=== PATIENT | male | born 1980 | race African-American/Black ===

== ENCOUNTER 2022-09-04 21:59 | Emergency (ER) | payer SELFPAY ==
[~2022-09-04] VITALS: Ht 182.9 cm; Wt 93.9 kg
[~2022-09-04 21:59] MED LIST: ETOMIDATE 2MG/ML 10ML VIAL IV ONE; SUCCINYLCHOLINE CHLORIDE 200MG/10ML IV ONE
[2022-09-04] MEDS ORDERED: ONDANSETRON HCL 4MG/2ML INJ IV STA (22:48)
[2022-09-04 22:57] LABS: CHLORIDE 101 mEq/L (98-107)
[2022-09-04 23:00] LABS: PROTHROMBIN TIME 10.8 sec (9.6-11.0)
[2022-09-04] MEDS ORDERED: PROPOFOL 10MG/ML 100ML 100 ML IV ONE (23:00)
[2022-09-04] MEDS ORDERED: MIDAZOLAM HCL 100 MG in DEXT 5% WATER 80 ML IV ONE (23:00)
[2022-09-04] MEDS ORDERED: ETOMIDATE 2MG/ML 10ML VIAL IV ONE (23:00)
[2022-09-04] MEDS ORDERED: MIDAZOLAM HCL 100 MG in SODIUM CHLORIDE 0.9% 100 ML IV PRN (23:00)
[2022-09-04] MEDS ORDERED: SODIUM CHLORIDE 0.9% 1,000 ML IV ONE (23:00)
[2022-09-04] MEDS ORDERED: VECURONIUM BROMIDE 10 MG/VIAL IV ONE (23:00)
[2022-09-04 23:03] LABS: BASOPHILS % 0.3 % (0.0-2.0); EOSINOPHILS % 0.3 % (0.0-5.0); HEMATOCRIT. 43.2 % (42.0-52.0); LYMPHOCYTES % 23.1 % (20.0-50.0); MEAN CORPUSCULAR HEMOGLOBIN 29.4 pg (28.0-32.0); MEAN CORPUSCULAR VOLUME 90.5 fL (80.0-94.0); MEAN PLATELET VOLUME 9.8 fl (7.4-10.4); MONOCYTES % 12.3 % (2.0-8.0); PLATELET 140 x1000/uL (130-400); RED BLOOD CELL COUNT 4.77 mill/uL (4.7-6.1); RED CELL DISTRIBUTION WIDTH 14.4 % (11.6-14.6)
[2022-09-04 23:14] LABS: CREATINE KINASE 618 IU/L (39-308); ETHANOL BLOOD 51 mg/dL
[2022-09-05] MEDS ORDERED: IOHEXOL-300 100 ML BOTTLE ONE (00:56)
[2022-09-05] MEDS ORDERED: ONDANSETRON HCL 4MG/2ML INJ IV NR (01:00)
[2022-09-05] MEDS ORDERED: TENECTEPLASE IV NR ×2 (01:30→05:00)
[2022-09-05] MEDS ORDERED: [UNRECOGNIZED DRUG - REMARK] IV SCH (01:45)
[2022-09-05] MEDS ORDERED: *TENECTEPLASE FOR AIS XX SCH (01:45)
[2022-09-05] MEDS ORDERED: PROPOFOL 10MG/ML 100ML 100 ML IV ONE (02:15)
[2022-09-05 04:15] VITALS: BP 186/111
== END 2022-09-05 04:30 | disposition short-term general hospital (02) ==
LOC: ER 22:04
DX: I63.9 Cerebral infarction, unspecified (principal); R94.31 Abnormal electrocardiogram [ECG] [EKG]
CPT/HCPCS: 31500; 36415; 70450; 70496; 70498; 71045; 80053; 80307; 80320; 80329; 82140; 82550; 83605; 83690; 83880; 84443; 84484; 85025; 85610; 86850; 86900; 86901; 93005; 94002; 96361; 96365; 96366; 96375; 96376; 99291; J0330; J2250; J2405; J2704; J3490; J7030; J7050; Q9967; Z7610; J7060; G0480